=== PATIENT | female | born 1930 | race Caucasian/White ===

== ENCOUNTER 2018-06-10 08:29 | Inpatient (IN) | payer OTHER, MEDICARE ==
[2018-06-10] MEDS: TRANEXAMIC ACID 1,000 MG in NS 100 ML INTRA-OP X1 IVPB (08:00)
[2018-06-10] MEDS: ROPIVACAINE 0.2% 60 ML, CLONIDINE 100 MCG, EPINEPHrine 0.3 MG, SOD CHLORIDE 0.9% 50 ML IRR (08:00)
[2018-06-10] MEDS: TRANEXAMIC ACID 1,000 MG in NS 100 ML PRE-OP X1 IVPB (08:00)
[2018-06-10] MEDS: POLYMYXIN B 500000 UNIT INJ (11:25)
[2018-06-10] MEDS: BACITRACIN 50000 UNITS INJ IRR (11:25)
[2018-06-10] MEDS ORDERED: LIDOCAINE 2% (SDV) 5 ML INJ (11:52)
[2018-06-10] MEDS ORDERED: ONDANSETRON 4 MG INJ (11:52)
[2018-06-10] MEDS ORDERED: PROPOFOL 20 ML (11:52)
[2018-06-10] MEDS ORDERED: CEFAZOLIN 1 GM INJ (11:52)
[2018-06-10] MEDS ORDERED: METOCLOPRAMIDE 10 MG INJ (11:52)
[2018-06-10] MEDS ORDERED: ATROPINE 1 MG/10 ML SYRINGE (12:26)
[2018-06-10] MEDS ORDERED: DEXAMETHASONE 4 MG/ML 1 ML INJ (12:50)
[2018-06-10] MEDS ORDERED: DIPHENHYDRAMINE 50 MG INJ IV (13:00)
[2018-06-10] MEDS ORDERED: MIDAZOLAM 1 MG/ML 2 ML INJ IV (13:00)
[2018-06-10] MEDS ORDERED: HYDROmorphONE 1 MG/5 ML IV SYRINGE IV ×2 (13:00)
[2018-06-10] MEDS ORDERED: hydrALAzine 20 MG INJ IV (13:00)
[2018-06-10] MEDS ORDERED: ONDANSETRON 4 MG INJ IV (13:00)
[2018-06-10] MEDS ORDERED: EPHEDrine SULFATE 50 MG/5 ML SYG IV (13:00)
[2018-06-10] MEDS ORDERED: FENTAnyl 50 MCG/ML VIAL IV ×3 (13:00)
[2018-06-10] MEDS ORDERED: NA PHOSPHATE/BIPHOS 133 ML ENEMA PR (14:00)
[2018-06-10] MEDS ORDERED: BETHANECHOL 25 MG TAB PO (14:00)
[2018-06-10] MEDS ORDERED: BISACODYL 10 MG SUPP PR (14:00)
[2018-06-10] MEDS ORDERED: NALOXONE (0.4 MG/ML) INJ IV (14:00)
[2018-06-10] MEDS ORDERED: oxyCODONE 5 MG TAB PO (14:00)
[2018-06-10] MEDS ORDERED: MAGNESIUM HYDROXIDE 30ML CUP PO (14:00)
[2018-06-10] MEDS: ONDANSETRON 4 MG INJ IV ×2 (14:08→20:00)
[2018-06-10] MEDS: MEPERIDINE 25 MG INJ IV (14:08)
[2018-06-10] MEDS: DOCUSATE SODIUM 100 MG CAP PO (14:08)
[2018-06-10] MEDS: ASPIRIN (EC) 325 MG TAB PO (14:09)
[2018-06-10] MEDS: HYDROmorphONE 1 MG/5 ML IV SYRINGE IV (14:42)
[2018-06-10] MEDS: LACTATED RINGER'S 1,000 ML IV* (15:35)
[2018-06-10] MEDS: ACETAMINOPHEN 1000MG/100ML IV 100 ML IVPB ×2 (15:50→23:04)
[2018-06-10] MEDS: VANCOMYCIN 1 GM (PMX) 250 ML IVPB (17:18)
[2018-06-10] MEDS: SOD CHLORIDE 0.9% 1,000 ML IV (17:19)
[2018-06-10] MEDS: PREDNISOLONE ACET 1% 5 ML OPH RIGHT EYE ×2 (17:19→20:39)
[2018-06-10] MEDS: ATORVASTATIN 10 MG TAB PO (20:33)
[2018-06-10] MEDS: CIPROFLOXACIN 0.3% 3.5 GM OPH OINT RIGHT EYE (20:39)
[2018-06-10] MEDS: METOPROLOL (XL) 100 MG TAB PO (21:00)
[2018-06-10] MEDS: ZOLPIDEM 5 MG TAB PO (22:44)
[2018-06-11] MEDS: ONDANSETRON 4 MG INJ IV ×2 (02:00→08:00)
[2018-06-11] MEDS: SOD CHLORIDE 0.9% 1,000 ML IV ×2 (02:14→14:44)
[2018-06-11] MEDS: VANCOMYCIN 1 GM (PMX) 250 ML IVPB (05:05)
[2018-06-11] MEDS: ACETAMINOPHEN 1000MG/100ML IV 100 ML IVPB (05:05)
[2018-06-11 05:07] LABS: ADD MAN DIFF? NO
[2018-06-11 05:15] LABS: WHITE BLOOD COUNT 12.6 10^3/ul (4.8-10.8)
[2018-06-11 05:15] LABS: BASOPHILS % 0.2 % (0.0-2.0); HEMATOCRIT 38.1 % (37.0-47.0); HEMOGLOBIN 12.7 g/dl (12.0-16.0); LYMPHOCYTES # 1.5 10^3/ul (0.8-2.9); LYMPHOCYTES % 12.1 % (15.0-51.0); MEAN CORPUSCULAR HEMOGLOBIN 31.9 pg (29.0-33.0); MEAN CORPUSCULAR HGB CONC 33.3 g/dl (32.0-37.0); MEAN CORPUSCULAR VOLUME 95.7 fl (82.0-101.0); MONOCYTE # 0.5 10^3/ul (0.3-0.9); NEUTROPHIL # 10.5 10^3/ul (1.6-7.5); NEUTROPHILS % 83.3 % (39.0-77.0); PLATELET COUNT 206 10^3/UL (140-415); RED BLOOD COUNT 3.98 10^6/ul (4.20-5.40); RED CELL DISTRIBUTION WIDTH 12.9 % (11.5-14.5)
[2018-06-11 05:28] LABS: ANION GAP 7 (5-13); BLOOD UREA NITROGEN 23 mg/dl (7-20); CALCIUM 8.5 mg/dl (8.4-10.2); CARBON DIOXIDE 26 mmol/L (21-31); CHLORIDE 105 mmol/L (97-110); CREATININE 1.05 mg/dl (0.44-1.00); GLUCOSE 128 mg/dl (70-220); POTASSIUM 3.8 mmol/L (3.5-5.1); SODIUM 138 mmol/L (135-144)
[2018-06-11] MEDS: PANTOPRAZOLE (EC) 40 MG TAB PO (05:50)
[2018-06-11] MEDS: FERROUS FUMARATE (SR) TAB PO ×2 (09:48→21:55)
[2018-06-11] MEDS: ASPIRIN (EC) 325 MG TAB PO (09:48)
[2018-06-11] MEDS: DOCUSATE SODIUM 100 MG CAP PO ×2 (09:48→21:53)
[2018-06-11] MEDS: THYROID 30 MG TAB PO (09:48)
[2018-06-11] MEDS: CIPROFLOXACIN 0.3% 3.5 GM OPH OINT RIGHT EYE ×3 (09:49→22:01)
[2018-06-11] MEDS: CHLORTHALIDONE 25 MG TAB PO (09:49)
[2018-06-11] MEDS: PREDNISOLONE ACET 1% 5 ML OPH RIGHT EYE ×4 (09:50→22:01)
[2018-06-11] MEDS: oxyCODONE 5 MG TAB PO ×2 (17:53→22:20)
[2018-06-11] MEDS: METOPROLOL (XL) 100 MG TAB PO (21:00)
[2018-06-11] MEDS: ATORVASTATIN 10 MG TAB PO (21:54)
[2018-06-12] MEDS: oxyCODONE 5 MG TAB PO ×5 (00:37→17:56)
[2018-06-12] MEDS: DIPHENHYDRAMINE 50 MG INJ IV (00:43)
[2018-06-12] MEDS: SOD CHLORIDE 0.9% 1,000 ML IV ×4 (03:14→17:51)
[2018-06-12 05:10] LABS: ADD MAN DIFF? NO
[2018-06-12 05:16] LABS: BASOPHIL # 0.1 10^3/ul (0.0-0.1); BASOPHILS % 0.4 % (0.0-2.0); EOSINOPHILS # 0.1 10^3/ul (0.0-0.5); EOSINOPHILS % 0.8 % (0.0-7.0); HEMATOCRIT 35.7 % (37.0-47.0); LYMPHOCYTES # 3.1 10^3/ul (0.8-2.9); LYMPHOCYTES % 23.8 % (15.0-51.0); MEAN CORPUSCULAR HEMOGLOBIN 31.8 pg (29.0-33.0); MEAN CORPUSCULAR HGB CONC 33.6 g/dl (32.0-37.0); MEAN CORPUSCULAR VOLUME 94.7 fl (82.0-101.0); MEAN PLATELET VOLUME 11.3 fl (7.4-10.4); NEUTROPHIL # 8.5 10^3/ul (1.6-7.5); NEUTROPHILS % 66.5 % (39.0-77.0); PLATELET COUNT 145 10^3/UL (140-415); RED BLOOD COUNT 3.77 10^6/ul (4.20-5.40)
[2018-06-12 05:16] LABS: WHITE BLOOD COUNT 12.8 10^3/ul (4.8-10.8)
[2018-06-12 05:35] LABS: ANION GAP 8 (5-13); BLOOD UREA NITROGEN 25 mg/dl (7-20); CALCIUM 8.6 mg/dl (8.4-10.2); CARBON DIOXIDE 24 mmol/L (21-31); CHLORIDE 108 mmol/L (97-110); CREATININE 1.19 mg/dl (0.44-1.00); GLUCOSE 107 mg/dl (70-220); SODIUM 140 mmol/L (135-144)
[2018-06-12] MEDS: PANTOPRAZOLE (EC) 40 MG TAB PO (06:10)
[2018-06-12] MEDS: CIPROFLOXACIN 0.3% 3.5 GM OPH OINT RIGHT EYE ×3 (09:00→20:22)
[2018-06-12] MEDS: ASPIRIN (EC) 325 MG TAB PO (10:07)
[2018-06-12] MEDS: THYROID 30 MG TAB PO (10:07)
[2018-06-12] MEDS: DOCUSATE SODIUM 100 MG CAP PO ×2 (10:07→20:16)
[2018-06-12] MEDS: FERROUS FUMARATE (SR) TAB PO ×2 (10:07→20:16)
[2018-06-12] MEDS: PREDNISOLONE ACET 1% 5 ML OPH RIGHT EYE ×4 (10:08→20:21)
[2018-06-12] MEDS: CHLORTHALIDONE 25 MG TAB PO (10:09)
[2018-06-12] MEDS ORDERED: oxyCODONE 15 MG TAB PO ×2 (20:00)
[2018-06-12] MEDS: ATORVASTATIN 10 MG TAB PO (20:16)
[2018-06-12] MEDS: METOPROLOL (XL) 100 MG TAB PO (20:16)
[2018-06-13] MEDS: oxyCODONE 5 MG TAB PO (01:15)
[2018-06-13 05:34] LABS: ADD MAN DIFF? NO
[2018-06-13 05:40] LABS: WHITE BLOOD COUNT 12.3 10^3/ul (4.8-10.8)
[2018-06-13 05:40] LABS: BASOPHIL # 0.1 10^3/ul (0.0-0.1); BASOPHILS % 0.7 % (0.0-2.0); EOSINOPHILS # 0.1 10^3/ul (0.0-0.5); HEMATOCRIT 37.3 % (37.0-47.0); HEMOGLOBIN 12.6 g/dl (12.0-16.0); LYMPHOCYTES # 2.8 10^3/ul (0.8-2.9); LYMPHOCYTES % 22.6 % (15.0-51.0); MEAN CORPUSCULAR HEMOGLOBIN 31.9 pg (29.0-33.0); MEAN CORPUSCULAR HGB CONC 33.8 g/dl (32.0-37.0); MEAN CORPUSCULAR VOLUME 94.4 fl (82.0-101.0); MEAN PLATELET VOLUME 10.9 fl (7.4-10.4); MONOCYTE # 1.2 10^3/ul (0.3-0.9); MONOCYTES % 9.9 % (0.0-11.0); NEUTROPHILS % 65.4 % (39.0-77.0); PLATELET COUNT 175 10^3/UL (140-415); RED BLOOD COUNT 3.95 10^6/ul (4.20-5.40); RED CELL DISTRIBUTION WIDTH 13.2 % (11.5-14.5)
[2018-06-13] MEDS: PANTOPRAZOLE (EC) 40 MG TAB PO (06:05)
[2018-06-13 06:11] LABS: ANION GAP 6 (5-13); BLOOD UREA NITROGEN 20 mg/dl (7-20); CALCIUM 8.6 mg/dl (8.4-10.2); CARBON DIOXIDE 26 mmol/L (21-31); CHLORIDE 104 mmol/L (97-110); CREATININE 1.03 mg/dl (0.44-1.00); GLUCOSE 119 mg/dl (70-220); SODIUM 136 mmol/L (135-144)
[2018-06-13] MEDS: PREDNISOLONE ACET 1% 5 ML OPH RIGHT EYE ×5 (09:15→21:00)
[2018-06-13] MEDS: FERROUS FUMARATE (SR) TAB PO ×2 (09:15→20:34)
[2018-06-13] MEDS: THYROID 30 MG TAB PO (09:17)
[2018-06-13] MEDS: ASPIRIN (EC) 325 MG TAB PO (09:17)
[2018-06-13] MEDS: DOCUSATE SODIUM 100 MG CAP PO ×2 (09:18→20:34)
[2018-06-13] MEDS: CIPROFLOXACIN 0.3% 3.5 GM OPH OINT RIGHT EYE ×3 (09:19→20:38)
[2018-06-13] MEDS: CHLORTHALIDONE 25 MG TAB PO (09:19)
[2018-06-13] MEDS: oxyCODONE 15 MG TAB PO ×3 (09:21→21:52)
[2018-06-13] MEDS: ATORVASTATIN 10 MG TAB PO (20:34)
[2018-06-13] MEDS: METOPROLOL (XL) 100 MG TAB PO (20:37)
[2018-06-14] MEDS: oxyCODONE 15 MG TAB PO ×3 (02:51→14:25)
[2018-06-14] MEDS: PANTOPRAZOLE (EC) 40 MG TAB PO (05:31)
[2018-06-14 05:41] LABS: ANION GAP 7 (5-13); BLOOD UREA NITROGEN 20 mg/dl (7-20); CALCIUM 8.6 mg/dl (8.4-10.2); CARBON DIOXIDE 26 mmol/L (21-31); CHLORIDE 102 mmol/L (97-110); CREATININE 1.14 mg/dl (0.44-1.00); GLUCOSE 111 mg/dl (70-220); POTASSIUM 4.2 mmol/L (3.5-5.1); SODIUM 135 mmol/L (135-144)
[2018-06-14 05:58] LABS: WHITE BLOOD COUNT 12.7 10^3/ul (4.8-10.8)
[2018-06-14 05:58] LABS: HEMATOCRIT 37.6 % (37.0-47.0); HEMOGLOBIN 12.9 g/dl (12.0-16.0); MEAN CORPUSCULAR HEMOGLOBIN 31.7 pg (29.0-33.0); MEAN CORPUSCULAR HGB CONC 34.3 g/dl (32.0-37.0); MEAN CORPUSCULAR VOLUME 92.4 fl (82.0-101.0); MEAN PLATELET VOLUME 11.5 fl (7.4-10.4); RED BLOOD COUNT 4.07 10^6/ul (4.20-5.40); RED CELL DISTRIBUTION WIDTH 12.8 % (11.5-14.5)
[2018-06-14 06:31] LABS: PLATELET COUNT 102 10^3/UL (140-415); POSITIVE DIFF @See below
[2018-06-14 06:32] LABS: ADD MAN DIFF? YES
[2018-06-14] MEDS: CHLORTHALIDONE 25 MG TAB PO (09:00)
[2018-06-14 09:14] LABS: BAND NEUTROPHILS #M 0.5 10^3/ul (0.0-0.6); BAND NEUTROPHILS % (M) 4 % (0-4); EOSINOPHILS % (M) 1 % (0-7); LYMPHOCYTES #M 2.4 10^3/ul (0.8-2.9); LYMPHOCYTES % (M) 19 % (15-51); MONOCYTE #M 0.6 10^3/ul (0.3-0.9); MONOCYTES % (M) 5 % (0-11); PLATELET ESTIMATE DECREASED; REACTIVE LYMPHOCYTES #M 1.7 10^3/ul (0.0-0.0); REACTIVE LYMPHOCYTES% (M) 14 % (0-0); SEG NEUT #M 7.3 10^3/ul (1.6-7.5); SEGMENTED NEUTROPHILS (M) % 57 % (39-77); SMUDGE%M 11 % (0-0); SPHEROCYTES 1+ (0-0)
[2018-06-14] MEDS: SENNA/DOCUSATE NA (8.6MG/50MG) TAB PO (09:54)
[2018-06-14] MEDS: FERROUS FUMARATE (SR) TAB PO (09:54)
[2018-06-14] MEDS: CIPROFLOXACIN 0.3% 3.5 GM OPH OINT RIGHT EYE ×2 (09:54→14:00)
[2018-06-14] MEDS: THYROID 30 MG TAB PO (09:54)
[2018-06-14] MEDS: ASPIRIN (EC) 325 MG TAB PO (09:54)
[2018-06-14] MEDS: PREDNISOLONE ACET 1% 5 ML OPH RIGHT EYE ×2 (09:56→14:00)
== END 2018-06-14 16:00 | DRG 470 ==
LOC: REC 08:29 → MS1 14:29
PROC: 0SRC0J9 Replacement of Right Knee Joint with Synthetic Substitute, Cemented, Open Approach (ICD-10-PCS; principal; 2018-06-10 11:00)
DX: M17.11 Unilateral primary osteoarthritis, right knee (principal); I13.0 Hypertensive heart and chronic kidney disease with heart failure and stage 1 through stage 4 chronic kidney disease, or unspecified chronic kidney disease; I50.32 Chronic diastolic (congestive) heart failure; E78.5 Hyperlipidemia, unspecified; E03.9 Hypothyroidism, unspecified; Z79.82 Long term (current) use of aspirin; N18.3 Chronic kidney disease, stage 3 (moderate)
CPT/HCPCS: 73560; 80048; 85025; 86850; 86900; 86901; 87081; 88304; 88311; 97110; 97116; 97161; 97166; 97530